=== PATIENT | female | born 1990 | race Caucasian/White ===

== ENCOUNTER 2025-03-14 13:04 | Emergency (ER) | payer MEDICAID ==
[~2025-03-14] VITALS: Ht 157.5 cm; Wt 115.8 kg
[2025-03-14 13:16] VITALS: BP 145/86; PULSE 82; RESP 16; TEMP 98.6; O2SAT 99
--- NOTE | 2025-03-14 13:51 | RADIOLOGY REPORT ---
INDICATION: ANKLE PAIN TECHNIQUE: 4 radiographic views of the left ankle were obtained. COMPARISON: None FINDINGS/IMPRESSION: No acute fracture or dislocations. Minimal joint effusion. Mild soft tissue edema about the ankle. No radiographic foreign body.
[2025-03-14] MEDS ORDERED: TRAM50TA2 PO (14:01)
--- NOTE | 2025-03-14 14:01 | Physician Documentation ---
History of Present Illness ~ Chief Complaint: Ankle pain Stated Complaint: ANKLE PAIN Time Seen by MD: 13:21 OK to notify your PCP?: Yes Primary Medical Doctor: Lourdes DELACRUZ Source: patient Mode of Arrival: POV Exam Limitations: no limitations HPI 35-year-old female with chief complaint left ankle pain. She denies any injury. She states she has been working quite a bit and does have a history of surgery on both of her ankles and prior injuries. States that she just woke up and she started having pain over the lateral and medial malleolus. She denies any pain in her calf. She states her ankles also a little more swollen than it usually is. Today she was at work but because of her pain she states her boss told her that she should come to the ER to get evaluated. She reports I do not want any time off of work because I can not afford it. No chest pain, shortness of breath, rashes or skin color changes, knee pain. Tetanus witin 5 years: No Medication Reconciliation Allergies: Coded Allergies: No Known Allergies (Unverified , 03/14/25) Scheduled PRN Tramadol Hcl (Tramadol Hcl), 1 TAB PO TID PRN PRN for pain Past Medical History Past Medical History: Headache Past Surgical History: no surgical history Review of Systems All Other Systems at this time: Reviewed and Negative Physical Exam Vital Signs: Temperature: 98.6, Source: Oral, Heart Rate: 82, Respiratory Rate: 16, BP: 145/86, Pulse Oximetry: 99, Weight: 115.800 Oxygen Flow Rate: 0 Physical Exam General Appearance: Alert, WD/WN. NAD. HEENT: NCAT, PERRL, EOMI. Neck: Supple, trachea midline. Cardiovascular: RRR. No m/r/g. Pedal pulses 2+ Lungs: CTAB. Breathing unlabored Extremities: Left ankle mild swelling over the medial and lateral malleolus, no skin color changes no ecchymosis or erythema. Tenderness over both lateral and medial malleolus. No tenderness over the Achilles tendon. No tenderness over the calf or knee joint. No tenderness over the metatarsals. Skin: Warm/dry, normal color Neurological: Alert and oriented x4, antalgic, favoring right leg. Psychiatric: Affect congruent with mood. Procedures Splinting Location: Left leg Pre-Made Type: Walking boot Pre-Proc Neuro Vasc Exam: normal Post-Proc Neuro Vasc Exam: normal Splint Placed By: edge banding machine offbearer Tolerated Procedure Well?: yes, no complications Progress Results/Orders Results/Orders Orders - IAN HAIDER General Nursing Order (03/14/25 13:55) Vital Signs 03/14/25 13:16 Temp 98.6 Pulse 82 Resp 16 B/P (MAP) 145/86 Pulse Ox 99 O2 Flow Rate 0 Medical Decision Making Additional information obtaine: N/A Findings n/a General Diff Dx:Considerations: Unlikely: Other Knee Diff Dx:Considerations: Unlikely: Other Ankle Diff Dx:Considerations: Include: Abrasion, Arthritis, Contusion, DJD, Fracture-metatarsal, Fracture-fibula, Fracture-tarsal, Fracture-tibia, Gout, Hematoma, Laceration, Malunion, Neurovascular injury, Nonunion, Open fracture, Osteomyelitis, Rheumatoid arthritis, Sprain, Septic, Ulcer, Other Foot Diff Dx:Considerations: Unlikely: Other Toe Diff Dx:Considerations: Unlikely: Other Additional Comment Patient has no tenderness in her calf or signs of DVT. Tenderness is localized to the ankle joint. X-ray negative for fracture but does show a small effusion. Findings most consistent with ankle sprain. Departure Time of Disposition: 13:59 Disposition: 01 HOME / SELF CARE / HOMELESS Impression: Primary Impression: Sprain of ankle Qualified Codes: S93.402A - Sprain of unspecified ligament of left ankle, initial encounter Condition: Stable Discharge Instructions: Ankle Sprain Additional Instructions: Follow up with orthopedist who did her previous surgery if you are able to if you are not able to follow up with the primary care provider. If your able to get a referral to physical therapy that would likely be helpful. If pain does not improve next step would be to get an MRI especially given your history with prior surgeries. If you have worsening of your pain return to the emergency room. INDICATION: ANKLE PAIN TECHNIQUE: 4 radiographic views of the left ankle were obtained. COMPARISON: None FINDINGS/IMPRESSION: No acute fracture or dislocations. Minimal joint effusion. Mild soft tissue edema about the ankle. No radiographic foreign body. Referrals: NO PRIMARY CARE PROVIDER (PCP) Prescriptions Tramadol Hcl (Tramadol Hcl) 50 Mg Tablet 1 TAB PO TID PRN PRN for pain for 5 Days, #15 TAB dx: ankle sprain S93.4 Prov: IAN HAIDER 03/14/25 Education Educated: Patient Educated regarding: diagnosis, treatment, need for follow up Signature Scribe Signature: lena Attestation: IAN Alfaro Mar 14, 2025 14:01
== END 2025-03-14 14:17 | disposition home or self-care (01) ==
LOC: ER 13:04
DX: S93.402A Sprain of unspecified ligament of left ankle, initial encounter (principal); X58.XXXA Exposure to other specified factors, initial encounter; Y93.89 Activity, other specified; Y92.89 Other specified places as the place of occurrence of the external cause; Y99.0 Civilian activity done for income or pay
CPT/HCPCS: 73610; 99283; L4360